=== PATIENT | female | born 1985 | race Caucasian/White ===

== ENCOUNTER 2018-07-03 18:08 | Emergency (ER) | payer SELFPAY ==
[2018-07-03] MEDS ORDERED: NA CHLORIDE 0.9% 1,000 ML ONE (19:02)
[2018-07-03] MEDS ORDERED: DIPHENHYDRAMINE 50 MG/ML VIAL ONE (19:02)
[2018-07-03] MEDS ORDERED: METOCLOPRAMIDE 10 MG/2mL INJ ONE (19:02)
[2018-07-03 20:31] LABS: Absolute Lymphocytes (CBC) 0.7 K/uL (0.7-4.9); Absolute Monocytes 0.2 K/uL (0.1-1.3); Absolute Neutrophil 6.4 K/uL (1.8-8.0); Basophils % 0.2 % (0-1.3); Hematocrit 35.6 % (36.0-45.0); Lymphocytes % 9.9 % (15.3-44.8); MCH 30.8 pg (27.0-35.0); MCV 88.5 fL (80-100); MPV 10.5 fL (7.6-11.3); Monocytes % 2.7 % (3.3-12.3); RBC Red Blood Cell Count 4.02 M/uL (3.86-4.86)
[2018-07-03 20:36] LABS: ALT/SGPT 26 U/L (12-78); AST/SGOT 14 U/L (15-37); Albumin 3.8 g/dL (3.4-5.0); Alkaline Phosphatase 37 U/L (45-117); BUN Blood Urea Nitrogen 13 mg/dL (7-18); Bicarbonate 24 mmol/L (21-32); Bilirubin Direct < 0.1 mg/dL (0-0.2); Bilirubin Total 0.4 mg/dL (0.2-1.0); Glucose Level 96 mg/dL (74-106); Lipase 137 U/L (73-393); Potassium 3.7 mmol/L (3.5-5.1); Protein, Total 6.8 g/dL (6.4-8.2); Sodium Level 140 mmol/L (136-145)
[2018-07-03 21:10] LABS: Blood Morphology Comment NOT SEEN (NOT SEEN); Platelet Estimate ADEQ
--- NOTE | 2018-07-03 22:00 | ER ---
Nurse's Notes [facility] Name: Angie Hillman Age: 33 yrs Sex: Female : 1985 Arrival Date: 07/03/2018 Time: 18:17 Bed 25 Private MD: Diagnosis: Vomiting;Unspecified abdominal pain Presentation: 07/03 18:18 Presenting complaint: EMS states: N/V and upper abdominal pain x 3 days. Not tolerating hb fluids. BP 90/58, HR 118, improved to 118/78, HR 89 after administration of 1L NS. 18:18 Method Of Arrival: EMS: [facility] hb 18:18 Transition of care: patient was not received from another setting of care. hb 18:18 Onset of symptoms was July 03, 2018. Risk Assessment: Do you want to hurt yourself hb or someone else? Patient reports no desire to harm self or others. Initial Sepsis Screen:. Care prior to arrival: Medication(s) given: Normal saline infusion, 1000 mL, IV initiated. 20 GA, in the right antecubital area, Glucose check: 126. 18:18 Acuity: SOREN 3 hb 18:30 Initial Sepsis Screen: Does the patient meet any 2 criteria? No. Patient's initial aj1 sepsis screen is negative. Does the patient have a suspected source of infection? Yes: Acute abdominal pain. 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 - Social history:: Smoking status: Patient/guardian denies using tobacco. - Ebola Screening: : Patient denies travel to an Ebola-affected area in the 21 days before illness onset. Screenin:21 Abuse screen: Denies threats or abuse. Denies injuries from another. Nutritional hb screening: No deficits noted. Tuberculosis screening: No symptoms or risk factors identified. Fall Risk None identified. Assessment: 18:30 General: Appears in no apparent distress. uncomfortable, Behavior is calm, cooperative, aj1 appropriate for age. Pain: Complains of pain in epigastric area Pain does not radiate. Pain currently is 6 out of 10 on a pain scale. Neuro: Level of Consciousness is awake, alert, obeys commands, Oriented to person, place, time, situation. Cardiovascular: Patient's skin is warm and dry. Respiratory: Airway is patent Respiratory effort is even, unlabored, Respiratory pattern is regular, symmetrical. GI: Abdomen is flat, non-distended, Bowel sounds present X 4 quads. Abdomen is tender to palpation in left upper quadrant Reports diarrhea, nausea, vomiting. : No signs and/or symptoms were reported regarding the genitourinary system. EENT: No signs and/or symptoms were reported regarding the EENT system. Derm: No signs and/or symptoms reported regarding the dermatologic system. Skin is pink, warm \T\ dry. normal. Musculoskeletal: No signs and/or symptoms reported regarding the musculoskeletal system. Circulation, motion, and sensation intact. 19:30 Reassessment: Patient appears in no apparent distress at this time. No changes from aj1 previously documented assessment. Patient and/or family updated on plan of care and expected duration. Pain level reassessed. Patient is alert, oriented x 3, equal unlabored respirations, skin warm/dry/pink. 20:30 Reassessment: Patient and/or family updated on plan of care and expected duration. Pain aj1 level reassessed. General: Appears in no apparent distress. comfortable, Behavior is calm, cooperative, appropriate for age. Neuro: Level of Consciousness is awake, alert, obeys commands, Oriented to person, place, time, situation. Cardiovascular: Patient's skin is warm and dry. Respiratory: Airway is patent Respiratory effort is even, unlabored, Respiratory pattern is regular, symmetrical. GI: Abdomen is flat, non-distended. Derm: No signs and/or symptoms reported regarding the dermatologic system. Skin is pink, warm \T\ dry. normal. Musculoskeletal: No signs and/or symptoms reported regarding the musculoskeletal system. Circulation, motion, and sensation intact. 21:30 Reassessment: Patient appears in no apparent distress at this time. No changes from aj1 previously documented assessment. Patient and/or family updated on plan of care and expected duration. Pain level reassessed. Patient is alert, oriented x 3, equal unlabored respirations, skin warm/dry/pink. 22:28 Reassessment: Patient appears in no apparent distress at this time. No changes from aj1 previously documented assessment. Patient and/or family updated on plan of care and expected duration. Pain level reassessed. Patient is alert, oriented x 3, equal unlabored respirations, skin warm/dry/pink. Vital Signs: 18:20 BP 121 / 59; Pulse 74; Resp 16; Temp 99; Pulse Ox 100% on R/A; Pain 10/10; hb 19:15 BP 113 / 58; Pulse 65; Resp 16; Pulse Ox 100% ; aj1 20:15 BP 103 / 51; Pulse 60; Resp 16; Pulse Ox 100% ; aj1 21:15 BP 112 / 55; Pulse 58; Resp 16; Pulse Ox 100% ; aj1 22:06 BP 105 / 59; Pulse 61; Resp 16; Pulse Ox 100% on R/A; aj1 ED Course: 18:17 Patient arrived in ED. as 18:19 Fito Arteaga PA is PHCP. [facility] 18:19 Julio Varma MD is Attending Physician. [facility] 18:21 Arm band placed on right wrist. hb 18:22 Triage completed. hb 18:30 Patient has correct armband on for positive identification. Bed in low position. Call aj1 light in reach. Side rails up X 1. 18:30 No provider procedures requiring assistance completed. Maintain EMS IV. Dressing aj1 intact. Good blood return noted. Site clean \T\ dry. Gauge \T\ site: 18g left AC. 18:48 Latrice Rainey, RN is Primary Nurse. aj1 21:59 Bucky Claire MD is Referral Physician. [facility] 22:30 IV discontinued, intact, bleeding controlled, No redness/swelling at site. Pressure aj1 dressing applied. Administered Medications: 19:09 Drug: diphenhydrAMINE 25 mg Route: IVP; Site: left antecubital; aj1 20:10 Follow up: Response: No adverse reaction aj1 19:10 Drug: NS 0.9% 1000 ml Route: IV; Rate: 1000 ml; Site: left antecubital; aj1 20:10 Follow up: IV Status: Completed infusion; IV Intake: 1000ml aj1 19:10 Drug: Reglan 10 mg Route: IVP; Site: left antecubital; aj1 20:10 Follow up: Response: No adverse reaction 1 21:58 Drug: Ketorolac 30 mg Route: IVP; Site: left antecubital; aj1 22:31 Follow up: Response: No adverse reaction aj1 Intake: 20:10 IV: 1000ml; Total: 1000ml. aj1 Outcome: 21:59 Discharge ordered by . nanci 22:30 Discharged to home ambulatory. aj1 22:30 Condition: good 22:30 Discharge instructions given to patient, Instructed on discharge instructions, follow up and referral plans. medication usage, Demonstrated understanding of instructions, follow-up care, medications, Prescriptions given X 2. 22:32 Patient left the ED. aj1 Signatures: Latrice Rainey, RN RN aj1 Fito Arteaga PA PA jmm Martinez, Amelia as Latanya Escamilla, RN RN hb
--- NOTE | 2018-07-03 22:01 | EDPHYS ---
Physician Documentation [facility] Name: Angie Hillman Age: 33 yrs Sex: Female : 1985 Arrival Date: 07/03/2018 Time: 18:17 Bed 25 Private MD: ED Physician Julio Varma HPI: 07/03 18:33 This 33 yrs old Female presents to ER via EMS with complaints of vomiting, abdominal jmm pain. 18:33 The patient presents to the emergency department with vomiting, diarrhea, abdominal jmm pain. Onset: The symptoms/episode began/occurred gradually, 3 day(s) ago. Possible causes: unknown. The symptoms are aggravated by nothing. The symptoms are alleviated by nothing. Associated signs and symptoms: Pertinent positives: abdominal pain. This is a 33 year old female with no chronic medical conditions that presents to the ED with epigastric abdominal pain vomiting, diarrhea beginning 3 days ago worsen today. Patient denies recent travel, denies sick contacts, denies recent abx use. . 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 - Social history:: Smoking status: Patient/guardian denies using tobacco. - Ebola Screening: : Patient denies travel to an Ebola-affected area in the 21 days before illness onset. ROS: 18:33 Constitutional: Negative for fever, chills, and weight loss, Eyes: Negative for injury, jmm pain, redness, and discharge, Cardiovascular: Negative for chest pain, palpitations, and edema, Respiratory: Negative for shortness of breath, cough, wheezing, and pleuritic chest pain. 18:33 Back: Negative for injury and pain, MS/Extremity: Negative for injury and deformity, Skin: Negative for injury, rash, and discoloration, Neuro: Negative for headache, weakness, numbness, tingling, and seizure. 18:33 Abdomen/GI: Positive for abdominal pain, nausea and vomiting, diarrhea. 18:33 All other systems are negative. Exam: 18:33 Constitutional: This is a well developed, well nourished patient who is awake, alert, jmm and in no acute distress. Head/Face: atraumatic. Eyes: EOMI, no conjunctival erythema appreciated ENT: Moist Mucus Membranes Neck: Trachea midline, Supple Chest/axilla: Normal chest wall appearance and motion. Cardiovascular: Regular rate and rhythm. No edema appreciated Respiratory: Normal respirations, no respiratory distress appreciated 18:33 Abdomen/GI: Inspection: abdomen appears normal, Bowel sounds: normal, Palpation: soft, mild abdominal tenderness, in the umbilical area and left upper quadrant. 18:33 Back: ROM is normal. 18:33 Musculoskeletal/extremity: ROM: intact in all extremities. 18:33 Skin: Appearance: Color: normal in color. 18:33 Neuro: Orientation: is normal, Mentation: is normal, Memory: is normal. 18:33 Psych: Behavior/mood is pleasant, cooperative. Vital Signs: 18:20 BP 121 / 59; Pulse 74; Resp 16; Temp 99; Pulse Ox 100% on R/A; Pain 10/10; hb 19:15 BP 113 / 58; Pulse 65; Resp 16; Pulse Ox 100% ; aj1 20:15 BP 103 / 51; Pulse 60; Resp 16; Pulse Ox 100% ; aj1 21:15 BP 112 / 55; Pulse 58; Resp 16; Pulse Ox 100% ; aj1 22:06 BP 105 / 59; Pulse 61; Resp 16; Pulse Ox 100% on R/A; aj1 MDM: 18:20 Patient medically screened. [facility] 21:44 Data reviewed: vital signs, nurses notes. Counseling: I had a detailed discussion with mitchell the patient and/or guardian regarding: the historical points, exam findings, and any diagnostic results supporting the discharge/admit diagnosis, the need for outpatient follow up, to return to the emergency department if symptoms worsen or persist or if there are any questions or concerns that arise at home. 21:58 ED course: Patient is able to tolerate PO in the ED. Risks and benefits of CT imaging nanci was discussed with the patient whom declined the study. Repeat exam of the patient's abdomen was soft with no guarding or rebound. Patient given follow up with GI. Strict return precautions given. Patient understood and agrees with the plan of care. . 07/03 18:22 Order name: Basic Metabolic Panel; Complete Time: 20:50 [facility] 07/03 18:22 Order name: CBC with Diff; Complete Time: 21:18 [facility] 07/03 18:22 Order name: Creatinine for Radiology; Complete Time: 20:50 [facility] 07/03 18:22 Order name: Hepatic Function; Complete Time: 20:50 [facility] 07/03 18:22 Order name: Lipase; Complete Time: 20:50 [facility] 07/03 21:10 Order name: Manual Differential; Complete Time: 21:18 [facility] 07/03 18:22 Order name: IV Saline Lock; Complete Time: 20:06 [facility] 07/03 18:22 Order name: Labs collected and sent; Complete Time: 20:06 [facility] 07/03 18:22 Order name: Urine Dipstick-Ancillary (obtain specimen); Complete Time: 21:18 [facility] 07/03 21:21 Order name: Urine Dipstick--Ancillary (enter results) [facility] 07/03 18:22 Order name: Urine Test (obtain specimen); Complete Time: 21:18 [facility] Administered Medications: 19:09 Drug: diphenhydrAMINE 25 mg Route: IVP; Site: left antecubital; aj1 20:10 Follow up: Response: No adverse reaction aj1 19:10 Drug: NS 0.9% 1000 ml Route: IV; Rate: 1000 ml; Site: left antecubital; aj1 20:10 Follow up: IV Status: Completed infusion; IV Intake: 1000ml aj1 19:10 Drug: Reglan 10 mg Route: IVP; Site: left antecubital; aj1 20:10 Follow up: Response: No adverse reaction aj1 21:58 Drug: Ketorolac 30 mg Route: IVP; Site: left antecubital; aj1 22:31 Follow up: Response: No adverse reaction aj1 Disposition: 07/04 07:41 Co-signature as Attending Physician, Julio Varma MD I agree with the assessment and carter plan of care. Disposition: 07/03/18 21:59 Discharged to Home. Impression: Vomiting, Unspecified abdominal pain. - Condition is Stable. - Discharge Instructions: Abdominal Pain, Adult. - Prescriptions for Zofran ODT 4 mg Oral tablet,disintegrating - place 1 tablet by TRANSLINGUAL route every 4-6 hours; 20 tablet. Bentyl 20 mg Oral Tablet - take 1 tablet by ORAL route every 6 hours As needed; 20 tablet. - Medication Reconciliation Form, Thank You Letter, Antibiotic Education, Prescription Opioid Use form. - Follow up: Bucky Claire MD; When: 2 - 3 days; Reason: Recheck today's complaints, Continuance of care, Re-evaluation by your physician. Signatures: Dispatcher [employer] Latrice Morales RN RN aj1 Julio Varma MD MD cha Mickail, Joel, PA PA Latanya Wilks RN RN Corrections: (The following items were deleted from the chart) 07/03 22:32 21:59 07/03/2018 21:59 Discharged to Home. Impression: Vomiting; Unspecified abdominal aj1 pain. Condition is Stable. Forms are Medication Reconciliation Form, Thank You Letter, Antibiotic Education, Prescription Opioid Use. Follow up: Bucky Claire; When: 2 - 3 days; Reason: Recheck today's complaints, Continuance of care, Re-evaluation by your physician. nanci
[2018-07-03] MEDS ORDERED: KETOROLAC 30 MG/ML INJ ONE (22:03)
[2018-07-03 22:55] LABS: Urine Blood NEGATIVE (NEG); Urine Glucose NEGATIVE (NEG); Urine Protein TRACE (NEG); Urine pH 8.5 (5.0-7.0)
== END 2018-07-03 22:32 | disposition home or self-care (01) ==
LOC: ER 18:08
DX: R11.10 Vomiting, unspecified (principal); R10.9 Unspecified abdominal pain
CPT/HCPCS: 36415; 80048; 80076; 81003; 83690; 85025; 96361; 96374; 96375; 99283; J2765; J7030

== ENCOUNTER 2018-08-03 14:00 | Emergency (ER) | payer SELFPAY ==
[2018-08-03 14:39] LABS: Absolute Monocytes 0.5 K/uL (0.1-1.3); Absolute Neutrophil 7.3 K/uL (1.8-8.0); Basophils % 0.4 % (0-1.3); Eosinophils % 0.2 % (0-4.4); Hematocrit 44.2 % (36.0-45.0); Lymphocytes % 20.1 % (15.3-44.8); MPV 9.2 fL (7.6-11.3); RBC Red Blood Cell Count 4.98 M/uL (3.86-4.86)
[2018-08-03] MEDS ORDERED: KETOROLAC 30 MG/ML INJ ONE (14:47)
[2018-08-03] MEDS ORDERED: NA CHLORIDE 0.9% 1,000 ML ONE ×2 (14:47→16:17)
[2018-08-03] MEDS ORDERED: ONDANSETRON 4 MG/2 ML VIAL ONE ×2 (14:47→15:34)
[2018-08-03 15:03] LABS: Albumin 4.3 g/dL (3.4-5.0); Bilirubin Direct 0.1 mg/dL (0-0.2); Bilirubin Total 0.7 mg/dL (0.2-1.0); Potassium 3.3 mmol/L (3.5-5.1); Protein, Total 8.2 g/dL (6.4-8.2)
--- NOTE | 2018-08-03 15:41 | RAD REPORT ---
EXAM DESCRIPTION: US - Abdomen Exam Limited - 08/03/2018 3:34 pm CLINICAL HISTORY: ABD PAIN COMPARISON: No comparisons FINDINGS: The gallbladder demonstrates no gallstones. No pericholecystic fluid or gallbladder wall t hickening. The common bile duct is normal measuring 2 mm. The liver demonstrates no findings of intrahepatic biliary dilatation. IMPRESSION: Unremarkable examination.
--- NOTE | 2018-08-03 15:54 | ER ---
Nurse's Notes [facility] Name: Angie Hillman Age: 33 yrs Sex: Female : 1985 Arrival Date: 08/03/2018 Time: 14:04 Bed 13 Private MD: None, None Diagnosis: Upper abdominal pain, unspecified;Nausea with vomiting, unspecified Presentation: 08/03 14:14 Presenting complaint: Patient states: Reports N/V and upper abdominal pain that started aj last night. Transition of care: patient was not received from another setting of care. Onset of symptoms was August 02, 2018. Risk Assessment: Do you want to hurt yourself or someone else? Patient reports no desire to harm self or others. Initial Sepsis Screen: Does the patient meet any 2 criteria? No. Patient's initial sepsis screen is negative. Does the patient have a suspected source of infection? No. Patient's initial sepsis screen is negative. Care prior to arrival: None. 14:14 Method Of Arrival: Ambulatory aj 14:14 Acuity: SOREN 3 aj Triage Assessment: 14:15 General: Appears in no apparent distress. uncomfortable, Behavior is calm, cooperative, aj appropriate for age. Pain: Complains of pain in right upper quadrant and left upper quadrant. Neuro: Level of Consciousness is awake, alert, obeys commands, Oriented to person, place, time, situation, Appropriate for age. Respiratory: Airway is patent Respiratory effort is even, unlabored, Respiratory pattern is regular, symmetrical. GI: Reports upper abdominal pain, diarrhea, nausea, vomiting. Derm: Skin is intact, is healthy with good turgor, Skin is pink, warm \T\ dry. normal. 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 - Social history:: Smoking status: Patient/guardian denies using tobacco. - Ebola Screening: : Patient negative for fever greater than or equal to 101.5 degrees Fahrenheit, and additional compatible Ebola Virus Disease symptoms Patient denies exposure to infectious person Patient denies travel to an Ebola-affected area in the 21 days before illness onset No symptoms or risks identified at this time. Screenin:30 Abuse screen: Denies threats or abuse. Denies injuries from another. Nutritional hb screening: No deficits noted. Tuberculosis screening: No symptoms or risk factors identified. Fall Risk None identified. Assessment: 14:30 General: Appears in no apparent distress. uncomfortable, Behavior is cooperative, hb anxious, crying. Pain: Pain currently is 8 out of 10 on a pain scale. Neuro: Level of Consciousness is awake, alert, obeys commands, Oriented to person, place, time, situation. Cardiovascular: Heart tones S1 S2 present Capillary refill < 3 seconds Patient's skin is warm and dry. Respiratory: Airway is patent Respiratory effort is even, unlabored, Respiratory pattern is regular, symmetrical, Breath sounds are clear bilaterally. GI: Abdomen is non-distended, Bowel sounds present X 4 quads. Abd is soft and non tender X 4 quads. Reports upper abdominal pain, nausea, vomiting. : No signs and/or symptoms were reported regarding the genitourinary system. EENT: No signs and/or symptoms were reported regarding the EENT system. Derm: Skin is intact, is healthy with good turgor, Skin is pink, warm \T\ dry. Musculoskeletal: No signs and/or symptoms reported regarding the musculoskeletal system. 15:02 Reassessment: Patient appears in no apparent distress at this time. No changes from previously documented assessment. Patient and/or family updated on plan of care and expected duration. Pain level reassessed. Patient is alert, oriented x 3, equal unlabored respirations, skin warm/dry/pink. 16:00 Reassessment: Patient appears in no apparent distress at this time. Patient and/or hb family updated on plan of care and expected duration. Pain level reassessed. Patient is alert, oriented x 3, equal unlabored respirations, skin warm/dry/pink. Discharge ordered, NS infusing at this time. 16:27 Reassessment: PT vomit x 1, SERVICE OPERATIONS MANAGER Sonya notified, Phenergan administered as ordered. VSS.hb 17:20 Reassessment: Patient appears in no apparent distress at this time. Patient and/or hb family updated on plan of care and expected duration. Pain level reassessed. Patient is alert, oriented x 3, equal unlabored respirations, skin warm/dry/pink. Patient denies pain at this time. Patient states feeling better. Patient states symptoms have improved. Vital Signs: 14:15 BP 121 / 72; Pulse 97; Resp 20; Temp 97.8; Pulse Ox 100% on R/A; Weight 54.43 kg; aj Height 5 ft. 8 in. (172.72 cm); 15:01 BP 111 / 72; Pulse 87; Resp 15; Pulse Ox 100% on R/A; Pain 7/10; hb 16:00 BP 116 / 64; Pulse 66; Resp 15; Pulse Ox 100% on R/A; hb 17:00 BP 116 / 64; Pulse 65; Resp 15; Pulse Ox 100% on R/A; Pain 0/10; hb 14:15 Body Mass Index 18.25 (54.43 kg, 172.72 cm) aj ED Course: 14:04 Patient arrived in ED. sb2 14:04 None, None is Private Physician. sb2 14:06 Sonya Hull FNP-C is [facility]. kb 14:06 Julio Varma MD is Attending Physician. kb 14:15 Triage completed. aj 14:15 Arm band placed on left wrist. Patient placed. aj 14:29 Initial lab(s) drawn, by me, sent to lab. Inserted saline lock: 22 gauge in right dh3 antecubital area, using aseptic technique. Blood collected. 14:30 Patient has correct armband on for positive identification. Placed in gown. Bed in low hb position. Call light in reach. Side rails up X 1. 14:49 Latanya Escamilla, RN is Primary Nurse. hb 15:30 Urine collected: clean catch specimen, earnestine colored. dh3 15:33 Ultrasound completed. Patient tolerated well. Patient moved back from ultrasound. aa4 15:34 US Abdomen Limited In Process Unspecified. EDMS 17:28 No provider procedures requiring assistance completed. IV discontinued, intact, hb bleeding controlled, No redness/swelling at site. Pressure dressing applied. Administered Medications: 14:44 Drug: NS 0.9% 1000 ml Route: IV; Rate: 1000 ml; Site: left antecubital; hb 15:45 Follow up: Response: No adverse reaction; IV Status: Completed infusion hb 14:44 Drug: TORadol 30 mg Route: IVP; Site: left antecubital; hb 15:15 Follow up: Response: No adverse reaction hb 14:44 Drug: Zofran 4 mg Route: IVP; Site: right antecubital; hb 15:15 Follow up: Response: No adverse reaction hb 15:28 Drug: Zofran 4 mg Route: IVP; Site: right antecubital; ss 16:00 Follow up: Response: No adverse reaction hb 16:13 Drug: NS 0.9% 1000 ml Route: IV; Rate: 1000 ml; Site: right antecubital; hb 17:27 Follow up: Response: No adverse reaction; IV Status: Completed infusion hb 16:13 Drug: Pepcid 20 mg Route: IVP; Site: right antecubital; hb 16:37 Follow up: Response: No adverse reaction hb 16:13 Drug: GI Cocktail without - (Maalox Suspension 30 ml, Lidocaine Liquid 2 % 15 hb ml) Route: PO; 16:37 Follow up: Response: No adverse reaction hb 16:26 Drug: Phenergan 12.5 mg Route: IVP; Site: right antecubital; hb 17:15 Follow up: Response: No adverse reaction; Nausea is decreased hb Outcome: 15:54 Discharge ordered by MD. kb 17:28 Discharged to home ambulatory, with family. hb 17:28 Condition: stable 17:28 Discharge instructions given to patient, Instructed on discharge instructions, follow up and referral plans. medication usage, Demonstrated understanding of instructions, follow-up care, medications, Prescriptions given X 2. 17:29 Patient left the ED. hb Signatures: Dispatcher [employer] EDSonya Thorpe, KENDRICK-C FLEET MECHANIC-Dee Aguayo RN Dee Samson aa4 Jodee Baum RN RN ss Baxter, Heather, RN RN hb Herrera, Deanna 3 Marbella Valverde2
--- NOTE | 2018-08-03 15:54 | EDPHYS ---
Physician Documentation [facility] Name: Angie Hillman Age: 33 yrs Sex: Female : 1985 Arrival Date: 08/03/2018 Time: 14:04 Bed 13 Private MD: None, None ED Physician Julio Varma HPI: 08/03 15:17 This 33 yrs old Female presents to ER via Ambulatory with complaints of kb Abdominal Pain, Vomiting. 15:17 The patient presents with abdominal pain in the epigastric area. Onset: The kb symptoms/episode began/occurred last night. The symptoms do not radiate. Associated signs and symptoms: Pertinent positives: nausea, vomiting, and diarrhea, Pertinent negatives: anorexia, blood in stools, chest pain, constipation, dysuria, fever, headache, hematuria, palpitations, shortness of breath, vaginal discharge, vomiting blood. The symptoms are described as constant. Modifying factors: The symptoms are alleviated by nothing, the symptoms are aggravated by nothing. Severity of pain: At its worst the pain was moderate in the emergency department the pain is unchanged. The patient has not experienced similar symptoms in the past. The patient has not recently seen a physician. 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 - Social history:: Smoking status: Patient/guardian denies using tobacco. - Ebola Screening: : Patient negative for fever greater than or equal to 101.5 degrees Fahrenheit, and additional compatible Ebola Virus Disease symptoms Patient denies exposure to infectious person Patient denies travel to an Ebola-affected area in the 21 days before illness onset No symptoms or risks identified at this time. ROS: 15:14 Constitutional: Negative for fever, chills, and weight loss, ENT: Negative for injury, kb pain, and discharge, Neck: Negative for injury, pain, and swelling, Cardiovascular: Negative for chest pain, palpitations, and edema, Respiratory: Negative for shortness of breath, cough, wheezing, and pleuritic chest pain, Back: Negative for injury and pain, : Negative for injury, bleeding, discharge, and swelling, MS/Extremity: Negative for injury and deformity, Skin: Negative for injury, rash, and discoloration, Neuro: Negative for headache, weakness, numbness, tingling, and seizure. 15:14 Abdomen/GI: Positive for abdominal pain, nausea and vomiting, Negative for diarrhea, constipation, abdominal cramps, abdominal distension, anorexia. Exam: 15:16 Constitutional: This is a well developed, well nourished patient who is awake, alert, kb and in no acute distress. Head/Face: Normocephalic, atraumatic. ENT: Nares patent. No nasal discharge, no septal abnormalities noted. Tympanic membranes are normal and external auditory canals are clear. Oropharynx with no redness, swelling, or masses, exudates, or evidence of obstruction, uvula midline. Mucous membranes moist. Neck: Trachea midline, no thyromegaly or masses palpated, and no cervical lymphadenopathy. Supple, full range of motion without nuchal rigidity, or vertebral point tenderness. No Meningismus. Chest/axilla: Normal chest wall appearance and motion. Nontender with no deformity. No lesions are appreciated. Cardiovascular: Regular rate and rhythm with a normal S1 and S2. No gallops, murmurs, or rubs. Normal PMI, no JVD. No pulse deficits. Respiratory: Lungs have equal breath sounds bilaterally, clear to auscultation and percussion. No rales, rhonchi or wheezes noted. No increased work of breathing, no retractions or nasal flaring. Abdomen/GI: Soft, non-tender, with normal bowel sounds. No distension or tympany. No guarding or rebound. No evidence of tenderness throughout. Skin: Warm, dry with normal turgor. Normal color with no rashes, no lesions, and no evidence of cellulitis. MS/ Extremity: Pulses equal, no cyanosis. Neurovascular intact. Full, normal range of motion. Neuro: Awake and alert, GCS 15, oriented to person, place, time, and situation. Cranial nerves II-XII grossly intact. Motor strength 5/5 in all extremities. Sensory grossly intact. Cerebellar exam normal. Normal gait. Vital Signs: 14:15 BP 121 / 72; Pulse 97; Resp 20; Temp 97.8; Pulse Ox 100% on R/A; Weight 54.43 kg; aj Height 5 ft. 8 in. (172.72 cm); 15:01 BP 111 / 72; Pulse 87; Resp 15; Pulse Ox 100% on R/A; Pain 7/10; hb 16:00 BP 116 / 64; Pulse 66; Resp 15; Pulse Ox 100% on R/A; hb 17:00 BP 116 / 64; Pulse 65; Resp 15; Pulse Ox 100% on R/A; Pain 0/10; hb 14:15 Body Mass Index 18.25 (54.43 kg, 172.72 cm) aj MDM: 14:18 Patient medically screened. kb 15:14 Data reviewed: vital signs, nurses notes. Data interpreted: Pulse oximetry: on room air kb is 100 %. Interpretation: normal. 15:53 Counseling: I had a detailed discussion with the patient and/or guardian regarding: the kb historical points, exam findings, and any diagnostic results supporting the discharge/admit diagnosis, lab results, radiology results, the need for outpatient follow up, a family practitioner, a child guidance counselor, to return to the emergency department if symptoms worsen or persist or if there are any questions or concerns that arise at home. 08/03 14:19 Order name: Basic Metabolic Panel; Complete Time: 15:04 kb 08/03 14:19 Order name: CBC with Diff; Complete Time: 14:43 kb 08/03 14:19 Order name: Hepatic Function; Complete Time: 15:04 kb 08/03 14:19 Order name: Lipase; Complete Time: 15:04 kb 08/03 15:43 Order name: Urine Dipstick--Ancillary (enter results); Complete Time: 16:22 ag 08/03 15:43 Order name: Urine --Ancillary (enter results); Complete Time: 16:22 ag 08/03 15:05 Order name: US Abdomen Limited; Complete Time: 15:44 kb 08/03 14:19 Order name: IV Saline Lock; Complete Time: 14:33 kb 08/03 14:19 Order name: Labs collected and sent; Complete Time: 14:33 kb 08/03 15:34 Order name: PO challenge; Complete Time: 16:13 kb Administered Medications: 14:44 Drug: NS 0.9% 1000 ml Route: IV; Rate: 1000 ml; Site: left antecubital; hb 15:45 Follow up: Response: No adverse reaction; IV Status: Completed infusion hb 14:44 Drug: TORadol 30 mg Route: IVP; Site: left antecubital; hb 15:15 Follow up: Response: No adverse reaction hb 14:44 Drug: Zofran 4 mg Route: IVP; Site: right antecubital; hb 15:15 Follow up: Response: No adverse reaction hb 15:28 Drug: Zofran 4 mg Route: IVP; Site: right antecubital; ss 16:00 Follow up: Response: No adverse reaction hb 16:13 Drug: NS 0.9% 1000 ml Route: IV; Rate: 1000 ml; Site: right antecubital; hb 17:27 Follow up: Response: No adverse reaction; IV Status: Completed infusion hb 16:13 Drug: Pepcid 20 mg Route: IVP; Site: right antecubital; hb 16:37 Follow up: Response: No adverse reaction hb 16:13 Drug: GI Cocktail without - (Maalox Suspension 30 ml, Lidocaine Liquid 2 % 15 hb ml) Route: PO; 16:37 Follow up: Response: No adverse reaction hb 16:26 Drug: Phenergan 12.5 mg Route: IVP; Site: right antecubital; hb 17:15 Follow up: Response: No adverse reaction; Nausea is decreased hb Disposition: 08/04 06:55 Co-signature as Attending Physician, Julio Varma MD I agree with the assessment and carter plan of care. Disposition: 08/03/18 15:54 Discharged to Home. Impression: Upper abdominal pain, unspecified, Nausea with vomiting, unspecified. - Condition is Stable. - Discharge Instructions: Nausea and Vomiting, Adult, [id number], Abdominal Pain, Adult, [id number]. - Prescriptions for Bentyl 20 mg Oral Tablet - take 1 tablet by ORAL route every 6 hours As needed; 20 tablet. Zofran 4 mg Oral Tablet - take 1 tablet by ORAL route every 6 hours As needed; 20 tablet. - Medication Reconciliation Form, Thank You Letter, Antibiotic Education, Prescription Opioid Use form. - Follow up: Emergency Department; When: As needed; Reason: Worsening of condition. Follow up: Private Physician; When: 2 - 3 days; Reason: Recheck today's complaints, Continuance of care, Re-evaluation by your physician. Signatures: Dispatcher [employer] EDNC Sonya Hull, HOUSE DECORATOR-C HOUSE DECORATOR-Ckb Dee Smallwood, RN RN Julio Cordon MD MD cha Smirch, Shelby, RN RN Latanya Escamilla, JUANITO RN hb Corrections: (The following items were deleted from the chart) 08/03 17:29 15:54 08/03/2018 15:54 Discharged to Home. Impression: Upper abdominal pain, hb unspecified; Nausea with vomiting, unspecified. Condition is Stable. Forms are Medication Reconciliation Form, Thank You Letter, Antibiotic Education, Prescription Opioid Use. Follow up: Emergency Department; When: As needed; Reason: Worsening of condition. Follow up: Private Physician; When: 2 - 3 days; Reason: Recheck today's complaints, Continuance of care, Re-evaluation by your physician. kb
[2018-08-03] MEDS ORDERED: MAGNE/ALUM HYDROXD 30 ML UCUP ONE (16:17)
[2018-08-03] MEDS ORDERED: LIDOCAINE VISCOUS 2% SOLN 15 ML UDC ONE (16:17)
[2018-08-03] MEDS ORDERED: FAMOTIDINE 20 MG/2 ML VIAL IV ONE (16:18)
[2018-08-03 16:19] LABS: Urine Blood TRACE (NEG); Urine Glucose NEGATIVE (NEG); Urine Protein 1+ (NEG); Urine Specific Gravity 1.025 (1.005-1.030); Urine pH 5.5 (5.0-7.0)
[2018-08-03] MEDS ORDERED: PROMETHAZINE 25 MG/ML VIAL ONE (16:34)
== END 2018-08-03 17:29 | disposition home or self-care (01) ==
LOC: ER 14:00
DX: R10.10 Upper abdominal pain, unspecified (principal); R11.2 Nausea with vomiting, unspecified
CPT/HCPCS: 36415; 76705; 80048; 80076; 81003; 81025; 83690; 85025; 99284; J2405; J2550; J7030

== ENCOUNTER 2018-10-23 08:49 | Emergency (ER) | payer SELFPAY ==
--- OUTSIDE RECORDS SUMMARY | 2018-10-23 08:51 | XMS REPORT ---
:1985 [facility] Address [address] [place] [address] [address] [place] [address] Care Team Providers Name Role Phone Unavailable Unavailable Unavailable Payers Payer Name Policy Type Policy Number Effective Date Expiration Date Problems This patient has no known problems. Allergies, Adverse Reactions, Alerts Allergy Allergy Status Severity Reaction(s) Onset Inactive Treating Comments Name Type Date Date Clinician doxepin TATO Active SV 2017-06 00:00:0 0 Medications This patient has no known medications. Results Test Description Test Time Test Comments Text Results Atomic Results Result Comments UA RFLX MICROSCOPIC CULTURE 2018-09-28 19:09:00 Test Item Value Reference Range Comments UA COLOR (test code=COLU) YELLOW YELLOW UA APPEARANCE (test code=APPU) CLEAR CLEAR UA GLUCOSE DIPSTICK (test code=DGLUU) NEGATIVE mg/dL NEGATIVE UA BILIRUBIN DIPSTICK (test code=BILU) NEGATIVE NEGATIVE UA KETONE DIPSTICK (test code=KETU) 15 mg/dL NEGATIVE UA SPECIFIC GRAVITY (test code=SGU) 1.010 1.001-1.035 UA BLOOD DIPSTICK (test code=MONTANA) NEGATIVE NEGATIVE UA PH DIPSTICK (test code=JOSE) 7.0 5.5-7.0 UA PROTEIN DIPSTICK (test code=PROU) NEGATIVE mg/dL NEGATIVE UA UROBILINOGEN DIPSTICK (test code=URO) NORMAL mg/dL NORMAL UA NITRITE DIPSTICK (test code=LALO) NEGATIVE NEGATIVE UA LEUKOCYTE ESTERASE DIPSTICK (test code=LEUU) TRACE NEGATIVE UA COMMENT (test code=COMU) VOLUME 10-12 ML URINE SPECIMEN DESCRIPTION (test code=UASPEC) Clean Catch UA WBC (test code=WBCU) < 10 #/hpf <10 UA SQUAMOUS CELLS (test code=SQU) 0 - 20 #/lpf <100 UA CULTURE NEEDED? (test code=UACULT) Criteria not met UA [id number] 19:09:00 Test Item Value Reference Range Comments UA RBC (test code=RBCU) 0-2 #/hpf NONE SEEN UA BACTERIA (test code=BACU) RARE #/hpf NONE SEEN UA RFLX MICROSCOPIC [id number] 19:03:00 Test Item Value Reference Range Comments UA COLOR (test code=COLU) YELLOW YELLOW UA APPEARANCE (test code=APPU) CLEAR CLEAR UA GLUCOSE DIPSTICK (test code=DGLUU) NEGATIVE mg/dL NEGATIVE UA BILIRUBIN DIPSTICK (test code=BILU) NEGATIVE NEGATIVE UA KETONE DIPSTICK (test code=KETU) 15 mg/dL NEGATIVE UA SPECIFIC GRAVITY (test code=SGU) 1.010 1.001-1.035 UA BLOOD DIPSTICK (test code=MONTANA) NEGATIVE NEGATIVE UA PH DIPSTICK (test code=JOSE) 7.0 5.5-7.0 UA PROTEIN DIPSTICK (test code=PROU) NEGATIVE mg/dL NEGATIVE UA UROBILINOGEN DIPSTICK (test code=URO) NORMAL mg/dL NORMAL UA NITRITE DIPSTICK (test code=LALO) NEGATIVE NEGATIVE UA LEUKOCYTE ESTERASE DIPSTICK (test TRACE NEGATIVE code=LEUU) UA COMMENT (test code=COMU) VOLUME 10-12 ML URINE SPECIMEN DESCRIPTION (test Clean Catch code=UASPEC) UA WBC (test code=WBCU) #/hpf <10 UA SQUAMOUS CELLS (test code=SQU) #/lpf <100 UA CULTURE NEEDED? (test code=UACULT) UA [id number] 19:03:00 Test Item Value Reference Range Comments UA RBC (test code=RBCU) #/hpf NONE SEEN UA RFLX MICROSCOPIC [id number] 19:03:00 Test Item Value Reference Range Comments UA COLOR (test code=COLU) YELLOW YELLOW UA APPEARANCE (test code=APPU) CLEAR CLEAR UA GLUCOSE DIPSTICK (test code=DGLUU) NEGATIVE mg/dL NEGATIVE UA BILIRUBIN DIPSTICK (test code=BILU) NEGATIVE NEGATIVE UA KETONE DIPSTICK (test code=KETU) 15 mg/dL NEGATIVE UA SPECIFIC GRAVITY (test code=SGU) 1.010 1.001-1.035 UA BLOOD DIPSTICK (test code=MONTANA) NEGATIVE NEGATIVE UA PH DIPSTICK (test code=JOSE) 7.0 5.5-7.0 UA PROTEIN DIPSTICK (test code=PROU) NEGATIVE mg/dL NEGATIVE UA UROBILINOGEN DIPSTICK (test code=URO) NORMAL mg/dL NORMAL UA NITRITE DIPSTICK (test code=LALO) NEGATIVE NEGATIVE UA LEUKOCYTE ESTERASE DIPSTICK (test TRACE NEGATIVE code=LEUU) UA COMMENT (test code=COMU) VOLUME 10-12 ML URINE SPECIMEN DESCRIPTION (test Clean Catch code=UASPEC) UA WBC (test code=WBCU) #/hpf <10 UA SQUAMOUS CELLS (test code=SQU) #/lpf <100 UA CULTURE NEEDED? (test code=UACULT) UA [id number] 19:03:00 Test Item Value Reference Range Comments UA RBC (test code=RBCU) #/hpf NONE SEEN D-DIMER [id number] 18:56:00 Test Item Value Reference Range Comments D-DIMER QUANT (test < 100 D-DU 0-400 Alere Triage values presented code=DDIMER) in units of mass (ng/mL)of D-dimer, also known as D-dimer units (D-DU).* Cut-off: 400 ng/mL Results of the D-Dimer test should always be interpretedin conjunction with the patient's medical history, clinicalpresentation, and other findings. Clinical diagnosis shouldnot be based on the results of D-Dimer alone.Patients with a distal DVT may have a normal D-Dimer result. ADD ON- XR CHEST 1 [id number] 18:34:00 Patient Name: ADY AYON Unit No: [id number] EXAMS: CPT CODE: [id number] XR CHEST 1 V 27798 Reason : syncope History: 4 syncopal episodes analysis line. Chest, single portable view. FINDINGS: Lungs are normally expanded and clear. Heart is not enlarged. No osseous or soft tissue abnormalities seen. IMPRESSION: Normal portable chest radiograph. Electronically Signed by Taj Fritz MD on 09/28 at 1834 Reported and signed by: Taj Fritz MD CC: Michael Fabian III, DO; Tita Jessica; Zafar Barahona MD Technologist: Magdalena AHMADI Trscrpt Dt/ (183) [email or web address] Orig Print D/T: S: 09/28/2018 (1837) [facility] NAME: ADY AYON [id number] [facility] PHYS: [email or web address].[id number] - CarenMichael maradiaga II Amarilis [place], [id number] : 1985 AGE: 33 SEX: F LOC: D.NER PHONE #: [phone] EXAM DATE: 09/28/2018 STATUS: REG ER FAX #: RAD NO: DC Dt: PAGE 1 Signed Report- CT HEAD/BRAIN W/O [id number] 18:11:00 Patient Name: ADY AYON Unit No: [id number] EXAMS: CPT CODE: [id number] CT HEAD/BRAIN W/O CONT [id number] Reason: sncope, SHER History: Syncope and headache. UNENHANCED CT BRAIN SCAN: Scans of the brain were performed at routine axial sections without the use of IV contrast. FINDINGS: The ventricular system and subarachnoid spaces are normalfor age. No mass lesion, midline shift, or extracerebral fluid collection is present. No low or high attenuation intraparenchymal lesions are noted. The paranasal sinuses, mastoids, and middle ears are normally aerated. Cranium and scalp are normal. IMPRESSION : Normal unenhanced CT scan of the brain. Electronically Signed by Taj Fritz MD on 09/28 at 1811 Reported and signed by: Taj Fritz MD CC: Michael Fabian III, DO ; Tita Jessica; Zafar Barahona MD Technologist: Magdalena AHMADI Trscrpt Dt/ (181)tCYNTHIAELG Orig Print D/ T: S: 09/28/2018 (181) CTDI: DLP: [facility] NAME: ADY AYON [id number] PHYS: SCHHA.[id number] - Caren,[place] [address] : 12/1984 AGE: 33 SEX: F LOC: DayanMEHREEN PHONE #: [phone] EXAM DATE: STATUS: REG ER FAX #: RAD NO: DC Dt: PAGE 1 Signed ReportHCG SERUM [id number] 17:44:00 Test Item Value Reference Range Comments HCG SERUM QUAL (test NEGATIVE NEGATIVE False negatives may occur when code=HCGQL) levels of hCGare below 10 mIU/ml. When is still suspected, a new specimenshould be obtained after 48 hours and re-tested.If waiting 48 hours is not medically advisable,the test result should be confirmed using aquantitative hCG assay. TROPONIN I [id number] 17:37:00 Test Item Value Reference Range Comments TROPONIN I RAPID (test 0.00 NG/ML 0.00-0.08 Performed by certified code=TROPIRAP) computer peripheral equipment operator at [facility] - The use of serial sampling and testing protocol is a recommended practice.- An elevated troponin level alone is often not sufficient for diagnosis of myocardial infarction. BASIC METABOLIC [id number] 17:25:00 Test Item Value Reference Range Comments SODIUM (test code=NA) 137 MMOL/L 133-145 POTASSIUM (test code=K) 3.4 MMOL/L 3.6-5.2 CHLORIDE (test code=CL) 101 MMOL/L 100-108 CARBON DIOXIDE (test 27 MMOL/L 22-32 code=CO2) GLUCOSE (test code=GLU) 97 MG/DL 65-99 Results of this assay method may be falsely depressed orelevated if patient is taking sulfasalazine. BLOOD UREA NITROGEN (test 9 MG/DL 6-20 code=BUN) GLOMERULAR FILTRATION RATE 84 64-149 Reporting units: (test code=GFR) mL/min/1.73m\S\2 (Modified MDRD Formula) CREATININE (test code=CREAT) 0.80 MG/DL 0.60-1.00 CALCIUM (test code=CA) 9.0 MG/DL 8.7-10.5 NT PRO-BRAIN NATRIURETIC [id number] 17:25:00 Test Item Value Reference Range Comments NT PRO-BRAIN NATRIURETIC PEPTI 112 PG/ML 0-125 Results of this assay method (test code=PROBNP) may be falsely depressed orelevated if patient is taking high doses of Biotin. BASIC METABOLIC [id number] 17:16:00 Test Item Value Reference Range Comments SODIUM (test code=NA) 137 MMOL/L 133-145 POTASSIUM (test code=K) 3.4 MMOL/L 3.6-5.2 CHLORIDE (test code=CL) 101 MMOL/L 100-108 CARBON DIOXIDE (test 27 MMOL/L 22-32 code=CO2) GLUCOSE (test code=GLU) 97 MG/DL 65-99 Results of this assay method may be falsely depressed orelevated if patient is taking sulfasalazine. BLOOD UREA NITROGEN (test 9 MG/DL 6-20 code=BUN) GLOMERULAR FILTRATION RATE 84 64-149 Reporting units: (test code=GFR) mL/min/1.73m\S\2 (Modified MDRD Formula) CREATININE (test code=CREAT) 0.80 MG/DL 0.60-1.00 CALCIUM (test code=CA) 9.0 MG/DL 8.7-10.5 NT PRO-BRAIN NATRIURETIC [id number] 17:16:00 Test Item Value Reference Range Comments NT PRO-BRAIN NATRIURETIC PEPTI (test code=PROBNP) PG/ML 0-125 CBC W/AUTO [id number] 17:10:00 Test Item Value Reference Range Comments WHITE BLOOD CELL (test code=WBC) 7.62 x10 3/uL 4.80-10.80 RED BLOOD CELL (test code=RBC) 4.01 x10 6/uL 4.2-5.4 HEMOGLOBIN (test code=HGB) 12.1 G/DL 12.0-16.0 HEMATOCRIT (test code=HCT) 36.1 % 37-47 MEAN CELL VOLUME (test code=MCV) 90.0 FL 81-99 MEAN CELL HGB (test code=MCH) 30.2 PG 27-31 MEAN CELL HGB CONCENTRATION (test code=MCHC) 33.5 G/DL 33-37 RED CELL DISTRIBUTION WIDTH (test code=RDW) 12.4 % 11.5-14.5 PLATELET COUNT (test code=PLT) 191 x10 3/uL 150-450 MEAN PLATELET VOLUME (test code=MPV) 11.1 FL 7.4-10.4 NEUTROPHIL % (test code=NT%) 63.5 % 42-86 LYMPHOCYTE % (test code=LY%) 30.4 % 24-44 MONOCYTE % (test code=MO%) 5.6 % 0.0-4.0 EOSINOPHIL % (test code=EO%) 0.4 % 0.0-2.7 BASOPHIL % (test code=BA%) 0.1 % 0.0-0.5 NEUTROPHIL # (test code=NT#) 4.83 x10 3/uL 1.8-7.7 LYMPHOCYTE # (test code=LY#) 2.32 x10 3/uL 1.0-4.8 MONOCYTE # (test code=MO#) 0.43 x10 3/uL 0.0-0.8 EOSINOPHIL # (test code=EO#) 0.03 x10 3/uL 0.0-0.5 BASOPHIL # (test code=BA#) 0.01 x10 3/uL 0.0-0.2
[2018-10-23] MEDS ORDERED: ONDANSETRON 4 MG/2 ML VIAL ONE (09:39)
[2018-10-23] MEDS ORDERED: NA CHLORIDE 0.9% 1,000 ML ONE ×2 (09:39→11:19)
[2018-10-23 09:53] LABS: Absolute Lymphocytes (CBC) 1.5 K/uL (0.7-4.9); Absolute Monocytes 0.3 K/uL (0.1-1.3); Absolute Neutrophil 9.2 K/uL (1.8-8.0); Basophils % 0.3 % (0-1.3); Eosinophils % 0.4 % (0-4.4); Hematocrit 43.1 % (36.0-45.0); Lymphocytes % 13.8 % (15.3-44.8); MPV 9.2 fL (7.6-11.3); Monocytes % 2.8 % (3.3-12.3); RBC Red Blood Cell Count 4.79 M/uL (3.86-4.86)
[2018-10-23 10:12] LABS: ALT/SGPT 35 U/L (12-78); AST/SGOT 23 U/L (15-37); Albumin 4.1 g/dL (3.4-5.0); Alkaline Phosphatase 57 U/L (45-117); BUN Blood Urea Nitrogen 12 mg/dL (7-18); Bicarbonate 28 mmol/L (21-32); Bilirubin Direct < 0.1 mg/dL (0-0.2); Bilirubin Total 0.3 mg/dL (0.2-1.0); Glucose Level 102 mg/dL (74-106); Lipase 1004 U/L (73-393); Potassium 3.9 mmol/L (3.5-5.1); Sodium Level 141 mmol/L (136-145)
[2018-10-23 10:15] LABS: Urine Blood TRACE (NEG); Urine Glucose NEGATIVE (NEG); Urine Protein 1+ (NEG); Urine Specific Gravity 1.015 (1.005-1.030); Urine pH 8.5 (5.0-7.0)
[2018-10-23] MEDS ORDERED: FAMOTIDINE 20 MG/2 ML VIAL IV ONE (11:19)
[2018-10-23] MEDS ORDERED: PROMETHAZINE 25 MG/ML VIAL ONE (11:19)
[2018-10-23] MEDS ORDERED: THIAMINE 200 MG/2 ML INJ ONE (11:19)
--- NOTE | 2018-10-23 11:37 | RAD REPORT ---
EXAM DESCRIPTION: CTAbdomen Pelvis W Contrast - 10/23/2018 11:28 am CLINICAL HISTORY: Abdominal pain. ABD PAIN COMPARISON: No comparisons TECHNIQUE: Biphasic CT imaging of the abdomen and pelvis was performed with 100 ml non-ionic IV cont rast. All CT scans are performed using dose optimization technique as appropriate and may include automated exposure control or mA/KV adjustment according to patient size. FINDINGS: The lung bases are clear. The liver, spleen, pancreas, adrenal glands and kidneys are within normal limits. No bowel obstruction, free air, free fluid or abscess. The appendix is normal. No evidence of signi ficant lymphadenopathy. No suspicious bony findings. IMPRESSION: No acute intra-abdominal or pelvic finding.
--- NOTE | 2018-10-23 11:51 | EDPHYS ---
Physician Documentation [facility] Name: Angie Hillman Age: 33 yrs Sex: Female : 1985 Arrival Date: 10/23/2018 Time: 08:52 Bed 6 Private MD: None, None ED Physician Julio Varma HPI: 10/23 09:43 This 33 yrs old Female presents to ER via Ambulatory with complaints of carter Vomiting. 09:43 The patient presents to the emergency department with nausea, vomiting, diarrhea, that carter is continuous. Onset: The symptoms/episode began/occurred just prior to arrival. Possible causes: unknown. The symptoms are aggravated by nothing. The symptoms are alleviated by. Associated signs and symptoms: Pertinent positives: abdominal pain, diarrhea, vomiting. Severity of symptoms: At their worst the symptoms were mild moderate in the emergency department the symptoms are unchanged. The patient has not experienced similar symptoms in the past. Historical: - Allergies: 09:03 Doxapram; ss - Home Meds: 09:03 Ambien 10 mg Oral tab 1 tab once daily [Active]; Lexapro Oral [Active]; ss - PMHx: 09:03 Pancreatitis; ss - PSHx: 09:03 None; ss - Immunization history:: Adult Immunizations. - Social history:: Smoking status: Patient/guardian denies using tobacco. - Ebola Screening: : Patient denies exposure to infectious person Patient denies travel to an Ebola-affected area in the 21 days before illness onset. - Family history:: not pertinent. ROS: 09:43 Constitutional: Negative for fever, chills, and weight loss, Eyes: Negative for injury, carter pain, redness, and discharge, ENT: Negative for injury, pain, and discharge, Neck: Negative for injury, pain, and swelling, Cardiovascular: Negative for chest pain, palpitations, and edema, Respiratory: Negative for shortness of breath, cough, wheezing, and pleuritic chest pain, Back: Negative for injury and pain, : Negative for injury, bleeding, discharge, and swelling, MS/Extremity: Negative for injury and deformity, Skin: Negative for injury, rash, and discoloration, Neuro: Negative for headache, weakness, numbness, tingling, and seizure, Psych: Negative for depression, anxiety, suicide ideation, homicidal ideation, and hallucinations, Allergy/Immunology: Negative for hives, rash, and allergies, Endocrine: Negative for neck swelling, polydipsia, polyuria, polyphagia, and marked weight changes, Hematologic/Lymphatic: Negative for swollen nodes, abnormal bleeding, and unusual bruising. 09:43 Abdomen/GI: Positive for abdominal pain, nausea and vomiting, diarrhea. Exam: 09:43 Constitutional: This is a well developed, well nourished patient who is awake, alert, carter and in no acute distress. Head/Face: Normocephalic, atraumatic. Eyes: Pupils equal round and reactive to light, extra-ocular motions intact. Lids and lashes normal. Conjunctiva and sclera are non-icteric and not injected. Cornea within normal limits. Periorbital areas with no swelling, redness, or edema. ENT: Nares patent. No nasal discharge, no septal abnormalities noted. Tympanic membranes are normal and external auditory canals are clear. Oropharynx with no redness, swelling, or masses, exudates, or evidence of obstruction, uvula midline. Mucous membranes moist. Neck: Trachea midline, no thyromegaly or masses palpated, and no cervical lymphadenopathy. Supple, full range of motion without nuchal rigidity, or vertebral point tenderness. No Meningismus. Chest/axilla: Normal chest wall appearance and motion. Nontender with no deformity. No lesions are appreciated. Cardiovascular: Regular rate and rhythm with a normal S1 and S2. No gallops, murmurs, or rubs. Normal PMI, no JVD. No pulse deficits. Respiratory: Lungs have equal breath sounds bilaterally, clear to auscultation and percussion. No rales, rhonchi or wheezes noted. No increased work of breathing, no retractions or nasal flaring. Back: No spinal tenderness. No costovertebral tenderness. Full range of motion. Female : Normal external genitalia. Skin: Warm, dry with normal turgor. Normal color with no rashes, no lesions, and no evidence of cellulitis. MS/ Extremity: Pulses equal, no cyanosis. Neurovascular intact. Full, normal range of motion. Neuro: Awake and alert, GCS 15, oriented to person, place, time, and situation. Cranial nerves II-XII grossly intact. Motor strength 5/5 in all extremities. Sensory grossly intact. Cerebellar exam normal. Normal gait. Psych: Awake, alert, with orientation to person, place and time. Behavior, mood, and affect are within normal limits. 09:43 Abdomen/GI: Inspection: abdomen appears normal, Bowel sounds: normal, Palpation: nontender, Liver: no appreciated palpable abnormalities, Hernia: not appreciated. Vital Signs: 09:03 BP 117 / 82; Pulse 76; Resp 21; Temp 97.9(TE); Pulse Ox 100% on R/A; Weight 58.97 kg; ss Height 5 ft. 8 in. (172.72 cm); Pain 05/11; 09:03 Body Mass Index 19.77 (58.97 kg, 172.72 cm) ss MDM: 09:02 Patient medically screened. [facility] 09:49 Data reviewed: vital signs, nurses notes, lab test result(s), CBC, electrolytes, [facility] hepatic panel, urinalysis. 10/23 09:03 Order name: Basic Metabolic Panel; Complete Time: 10:19 [facility] 10/23 09:03 Order name: CBC with Diff; Complete Time: 10:19 [facility] 10/23 09:03 Order name: Creatinine for Radiology; Complete Time: 10:19 [facility] 10/23 09:03 Order name: Hepatic Function; Complete Time: 10:19 [facility] 10/23 09:03 Order name: Lipase; Complete Time: 10:19 [facility] 10/23 09:29 Order name: Urine Dipstick--Ancillary (enter results); Complete Time: 10:19 10/23 09:29 Order name: Urine --Ancillary (enter results); Complete Time: 10:19 10/23 10:20 Order name: CT Abd/Pelvis - W/Contrast; Complete Time: 11:50 [facility] 10/23 09:03 Order name: IV Saline Lock; Complete Time: 09:42 [facility] 10/23 09:03 Order name: Labs collected and sent; Complete Time: 09:42 [facility] 10/23 09:03 Order name: Urine Dipstick-Ancillary (obtain specimen); Complete Time: :42 [facility] 10/23 09:03 Order name: Urine Test (obtain specimen); Complete Time: 09:42 [facility] Administered Medications: 09:40 Drug: NS 0.9% 1000 ml Route: IV; Rate: 1 bolus; Site: right antecubital; sg 11:00 Follow up: Response: No adverse reaction; IV Status: Completed infusion; IV Intake: sv 1000ml 09:40 Drug: Zofran 4 mg Route: IVP; Site: right antecubital; sg 11:14 Drug: Phenergan 12.5 mg Route: IVP; Site: right antecubital; sv 11:16 Drug: Pepcid 20 mg Route: IVP; Site: right antecubital; sv 11:25 Drug: NS 0.9% 1000 ml Route: IV; Rate: 1 bolus; Site: right antecubital; sg 11:25 Drug: Thiamine 100 mg Route: IV; Rate: bolus; Site: right antecubital; sg Disposition: 10/23/18 11:50 Discharged to Home. Impression: Vomiting, Diarrhea, unspecified, Alcohol abuse, Acute pancreatitis. - Condition is Stable. - Discharge Instructions: Food Choices to Help Relieve Diarrhea, Adult, Diarrhea, Adult, Nausea and Vomiting, Adult, Acute Pancreatitis, Acute Pancreatitis, Yrld-ff-Ghvn, Nausea and Vomiting, Adult, Mvfa-ae-Ygpi, Alcohol Abuse and Nutrition, Diarrhea, Adult, Kqll-hl-Enwp. - Prescriptions for Bentyl 20 mg Oral Tablet - take 1 tablet by ORAL route every 6 hours As needed; 20 tablet. Pepcid 20 mg Oral Tablet - take 1 tablet by ORAL route every 12 hours for 10 days; 20 tablet. Zofran 4 mg Oral Tablet - take 1 tablet by ORAL route every 12 hours As needed; 20 tablet. - Medication Reconciliation Form, Thank You Letter, Antibiotic Education, Prescription Opioid Use, Work release form form. - Follow up: Private Physician; When: 2 - 3 days; Reason: Recheck today's complaints, Continuance of care, Re-evaluation by your physician. Follow up: Kamar Herrera; When: 2 - 3 days; Reason: Recheck today's complaints, Continuance of care, Re-evaluation by your physician. - Problem is new. - Symptoms have improved. Signatures: Dispatcher [employer] Yana English RN RN sv Gay, Steven, RN RN sg Anderson, Corey, MD MD cha Smirch, Shelby, RN RN ss Corrections: (The following items were deleted from the chart) 13:03 11:50 10/23/2018 11:50 Discharged to Home. Impression: Vomiting; Diarrhea, unspecified; sv Alcohol abuse; Acute pancreatitis. Condition is Stable. Discharge Instructions: Food Choices to Help Relieve Diarrhea, Adult, Diarrhea, Adult, Nausea and Vomiting, Adult, Acute Pancreatitis, Acute Pancreatitis, Gceh-rx-Gcnf, Nausea and Vomiting, Adult, Loqx-fy-Elui, Alcohol Abuse and Nutrition, Diarrhea, Adult, Ggxr-dm-Livk. Prescriptions for Bentyl 20 mg Oral Tablet - take 1 tablet by ORAL route every 6 hours As needed; 20 tablet, Pepcid 20 mg Oral Tablet - take 1 tablet by ORAL route every 12 hours for 10 days; 20 tablet, Zofran 4 mg Oral Tablet - take 1 tablet by ORAL route every 12 hours As needed; 20 tablet. and Forms are Medication Reconciliation Form, Thank You Letter, Antibiotic Education, Prescription Opioid Use. Follow up: Private Physician; When: 2 - 3 days; Reason: Recheck today's complaints, Continuance of care, Re-evaluation by your physician. Follow up: Kamar Herrera; When: 2 - 3 days; Reason: Recheck today's complaints, Continuance of care, Re-evaluation by your physician. Problem is new. Symptoms have improved. carter
--- NOTE | 2018-10-23 11:51 | ER ---
Nurse's Notes [facility] Name: Angie Hillman Age: 33 yrs Sex: Female : 1985 Arrival Date: 10/23/2018 Time: 08:52 Bed 6 Private MD: None, None Diagnosis: Vomiting;Diarrhea, unspecified;Alcohol abuse;Acute pancreatitis Presentation: 10/23 09:01 Presenting complaint: Patient states: N/V and abd pain that began this morning at 0400. ss Pt reports a history of pancreatits, but states this feels different. Transition of care: patient was not received from another setting of care. Onset of symptoms was October 23, 2018. Risk Assessment: Do you want to hurt yourself or someone else? Patient reports no desire to harm self or others. Initial Sepsis Screen: Does the patient meet any 2 criteria? No. Patient's initial sepsis screen is negative. Does the patient have a suspected source of infection? No. Patient's initial sepsis screen is negative. Note Pt has finger in her throat during triage attempting to vomit. Care prior to arrival: None. 09:01 Method Of Arrival: Ambulatory 09:01 Acuity: SOREN 3 ss Historical: - Allergies: 09:03 Doxapram; ss - Home Meds: 09:03 Ambien 10 mg Oral tab 1 tab once daily [Active]; Lexapro Oral [Active]; ss - PMHx: 09:03 Pancreatitis; ss - PSHx: 09:03 None; ss - Immunization history:: Adult Immunizations. - Social history:: Smoking status: Patient/guardian denies using tobacco. - Ebola Screening: : Patient denies exposure to infectious person Patient denies travel to an Ebola-affected area in the 21 days before illness onset. - Family history:: not pertinent. Screenin:02 Abuse screen: Denies threats or abuse. Denies injuries from another. Nutritional sv screening: No deficits noted. Tuberculosis screening: No symptoms or risk factors identified. Fall Risk None identified. Assessment: 09:42 General: Appears in no apparent distress. comfortable, well groomed, well developed, sg well nourished, Behavior is calm, cooperative, appropriate for age. Neuro: Level of Consciousness is awake, alert, obeys commands, Oriented to person, place, time, situation, Gis Administrator are equal bilaterally Moves all extremities. Full function Speech is normal, Facial symmetry appears normal. Cardiovascular: Capillary refill is brisk in bilateral fingers Patient's skin is warm and dry. Chest pain is denied. Respiratory: Airway is patent Respiratory effort is even, unlabored, Respiratory pattern is regular, symmetrical. GI: Abdomen is flat, Pt is actively vomiting bile, Reports nausea, vomiting. Derm: Skin is intact, is healthy with good turgor, Skin is dry, Skin is pale, Skin temperature is warm. Musculoskeletal: No signs and/or symptoms reported regarding the musculoskeletal system. 11:14 Reassessment: Patient appears in no apparent distress at this time. No changes from sv previously documented assessment. Patient and/or family updated on plan of care and expected duration. Pain level reassessed. Patient is alert, oriented x 3, equal unlabored respirations, skin warm/dry/pink. GI: Reports nausea. Vital Signs: 09:03 BP 117 / 82; Pulse 76; Resp 21; Temp 97.9(TE); Pulse Ox 100% on R/A; Weight 58.97 kg; ss Height 5 ft. 8 in. (172.72 cm); Pain 10/10; 09:03 Body Mass Index 19.77 (58.97 kg, 172.72 cm) ED Course: 08:52 Patient arrived in ED. mr 08:53 None, None is Private Physician. mr 09:02 Julio Varma MD is Attending Physician. [facility] 09:02 Triage completed. ss 09:03 Arm band placed on right wrist. ss 09:20 Sukumar Moya, RN is Primary Nurse. sg 09:30 Initial lab(s) drawn, by nj, sent to lab. Urine collected: clean catch specimen, earnestine sg colored. Inserted saline lock: 22 gauge in right antecubital area, using aseptic technique. Blood collected. 11:28 CT Abd/Pelvis - W/Contrast In Process Unspecified. EDMS 11:50 Kamar Herrera MD is Referral Physician. carter 13:02 Patient has correct armband on for positive identification. sv 13:02 No provider procedures requiring assistance completed. IV discontinued, intact, sv bleeding controlled, No redness/swelling at site. Pressure dressing applied. Administered Medications: 09:40 Drug: NS 0.9% 1000 ml Route: IV; Rate: 1 bolus; Site: right antecubital; sg 11:00 Follow up: Response: No adverse reaction; IV Status: Completed infusion; IV Intake: sv 1000ml 09:40 Drug: Zofran 4 mg Route: IVP; Site: right antecubital; sg 11:14 Drug: Phenergan 12.5 mg Route: IVP; Site: right antecubital; sv 11:16 Drug: Pepcid 20 mg Route: IVP; Site: right antecubital; sv 11:25 Drug: NS 0.9% 1000 ml Route: IV; Rate: 1 bolus; Site: right antecubital; sg 11:25 Drug: Thiamine 100 mg Route: IV; Rate: bolus; Site: right antecubital; sg Intake: 11:00 IV: 1000ml; Total: 1000ml. sv Outcome: 11:50 Discharge ordered by . carter 13:02 Discharged to home ambulatory. sv 13:02 Condition: stable 13:02 Discharge instructions given to patient, Instructed on discharge instructions, follow up and referral plans. no drinking with medication, medication usage, Demonstrated understanding of instructions, follow-up care, medications, Prescriptions given X 3. 13:03 Patient left the ED. sv Signatures: Dispatcher [employer] Yana English RN RN sv Gay, Steven, RN RN sg Anderson, Corey, MD MD cha Rivera, Mary mr Smirch, Shelby, RN RN
== END 2018-10-23 13:03 | disposition home or self-care (01) ==
LOC: ER 08:49
DX: K85.90 Acute pancreatitis without necrosis or infection, unspecified (principal); F10.10 Alcohol abuse, uncomplicated; Z88.8 Allergy status to other drugs, medicaments and biological substances
CPT/HCPCS: 36415; 74177; 80048; 80076; 81003; 81025; 83690; 85025; 96361; 96374; 96375; 99284; J2405; J2550; J3411; J7030; Q9967

== ENCOUNTER 2018-11-25 06:45 | Emergency (ER) | payer SELFPAY ==
--- OUTSIDE RECORDS SUMMARY | 2018-11-25 06:48 | XMS REPORT ---
:1985 [facility] [address] [place] [address] [address] [place] [address] Care Team Providers Name Role Phone Unavailable [...] NEEDED? (test code=UACULT) Criteria not met UA [id number] 19:09:00 Test Item Value Reference Range Comments UA RBC (test code=RBCU) 0-2 #/hpf NONE SEEN UA BACTERIA (test code=BACU) RARE #/hpf NONE SEEN UA RFLX MICROSCOPIC [id number] 19:03:00 Test Item Value Reference Range Comments [...] <100 UA CULTURE NEEDED? (test code=UACULT) UA [id number] 19:03:00 Test Item Value Reference Range Comments UA RBC (test code=RBCU) #/hpf NONE SEEN UA RFLX MICROSCOPIC [id number] 19:03:00 Test Item Value Reference Range Comments [...] <100 UA CULTURE NEEDED? (test code=UACULT) UA [id number] 19:03:00 Test Item Value Reference Range Comments UA RBC (test code=RBCU) #/hpf NONE SEEN D-DIMER [id number] 18:56:00 Test Item Value Reference Range Comments [...] D-Dimer result. ADD ON- XR CHEST 1 [id number] 18:34:00 Patient Name: ADY AYON Unit No: [id number] EXAMS: CPT CODE: [id number] XR CHEST 1 V 27321 Reason : syncope History: 4 syncopal episodes [...] t.[email or web address].ELG Orig Print D/T: S: 09/28/2018 (1837) [facility] NAME: ADY AYON [id number] [facility] PHYS: [email or web address] - CarenMichael maradiaga II Amarilis [place], [id number] : 1985 AGE: 33 SEX: F LOC: D.NER PHONE #: [phone] EXAM DATE: 09/28/2018 STATUS: REG ER FAX #: RAD NO: DC Dt: PAGE 1 Signed Report- CT HEAD/BRAIN W/O [id number] 18:11:00 Patient Name: ADY AYON Unit No: [id number] EXAMS: CPT CODE: [id number] CT HEAD/BRAIN W/O CONT [id number] Reason: sncope, SHER History: Syncope and headache. [...] D/ T: S: 09/28/2018 (181) CTDI: DLP: [facility] NAME: ADY AYON [id number] PHYS: [email or web address].[email or web address] - Caren,[place] [address] : 12/1984 AGE: 33 SEX: F LOC: DayanMEHREEN PHONE #: [phone] EXAM DATE: STATUS: REG ER FAX #: RAD NO: DC Dt: PAGE 1 Signed ReportHCG SERUM [id number] 17:44:00 Test Item Value Reference Range Comments HCG SERUM QUAL (test NEGATIVE NEGATIVE False negatives may occur when code=HCGQL) levels of hCGare below 10 mIU/ml. When is still suspected, a new specimenshould be obtained after 48 hours and re-tested.If waiting 48 hours is not medically advisable,the test result should be confirmed using aquantitative hCG assay. 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 BASIC METABOLIC [id number] 17:25:00 Test Item Value Reference Range Comments [...] code=CA) 9.0 MG/DL 8.7-10.5 NT PRO-BRAIN NATRIURETIC [id number] 17:25:00 Test Item Value Reference Range Comments NT PRO-BRAIN NATRIURETIC PEPTI 112 PG/ML 0-125 Results of this assay method (test code=PROBNP) may be falsely depressed orelevated if patient is taking high doses of Biotin. BASIC METABOLIC [id number] 17:16:00 Test Item Value Reference Range Comments [...] code=CA) 9.0 MG/DL 8.7-10.5 NT PRO-BRAIN NATRIURETIC [id number] 17:16:00 Test Item Value Reference Range Comments NT PRO-BRAIN NATRIURETIC PEPTI (test code=PROBNP) PG/ML 0-125 CBC W/AUTO [id number] 17:10:00 Test Item Value Reference Range Comments [...]
[2018-11-25 07:16] LABS: Absolute Monocytes 0.5 K/uL (0.1-1.3); Absolute Neutrophil 3.6 K/uL (1.8-8.0); Basophils % 0.7 % (0-1.3); Eosinophils % 0.4 % (0-4.4); Hematocrit 40.5 % (36.0-45.0); MPV 9.8 fL (7.6-11.3); Monocytes % 7.7 % (3.3-12.3)
[2018-11-25] MEDS ORDERED: KETOROLAC 30 MG/ML INJ ONE (07:21)
[2018-11-25] MEDS ORDERED: PROMETHAZINE 25 MG/ML VIAL ONE (07:21)
[2018-11-25] MEDS ORDERED: NA CHLORIDE 0.9% 1,000 ML ONE (07:21)
[2018-11-25 07:34] LABS: Albumin 3.9 g/dL (3.4-5.0); Bilirubin Direct 0.1 mg/dL (0-0.2); Bilirubin Total 0.5 mg/dL (0.2-1.0); Potassium 3.3 mmol/L (3.5-5.1); Protein, Total 7.6 g/dL (6.4-8.2)
[2018-11-25 07:40] LABS: Urine Blood TRACE (NEG); Urine Glucose NEGATIVE (NEG); Urine Protein 1+ (NEG); Urine Specific Gravity 1.025 (1.005-1.030)
[2018-11-25] MEDS ORDERED: ONDANSETRON 4 MG/2 ML VIAL ONE (07:59)
[2018-11-25] MEDS ORDERED: POTASSIUM CL SA 10 MEQ TAB PO ONE (07:59)
--- NOTE | 2018-11-25 08:25 | EDPHYS ---
Physician Documentation [facility] Name: Angie Hillman Age: 33 yrs Sex: Female : 1985 Arrival Date: 11/25/2018 Time: 06:47 Bed 6 Private MD: ED Physician Julio Varma HPI: 11/25 07:48 This 33 yrs old Female presents to ER via Ambulatory with complaints of ma2 Nausea/Vomiting/Diarrhea, Abdominal Pain. 07:48 The patient presents to the emergency department with. ma2 07:55 Onset: The symptoms/episode began/occurred yesterday. Possible causes: unknown. The kb symptoms are aggravated by nothing. The symptoms are alleviated by nothing. Associated signs and symptoms: Pertinent positives: diarrhea, nausea, vomiting, abd cramping. Severity of symptoms: At their worst the symptoms were moderate in the emergency department the symptoms are unchanged. The patient has experienced similar episodes in the past. The patient has not recently seen a physician. Pt reports n/v/d and abd cramping that started last night. STates she has pancreatitis, but does not think that is what it is. Reports she was very stressed yesterday so she thinks that is what brought the symptoms on. . Historical: - Allergies: 06:59 Doxapram; jd3 - Home Meds: 06:59 Lexapro Oral [Active]; Zofran Oral [Active]; Ambien 10 mg Oral tab 1 tab once daily jd3 [Active]; - PMHx: 06:59 Pancreatitis; Anxiety; jd3 - PSHx: 06:59 None; jd3 - Immunization history:: Adult Immunizations up to date. - Social history:: Smoking status: Patient/guardian denies using tobacco, but has a distant history of tobacco abuse. - Ebola Screening: : Patient negative for fever greater than or equal to 101.5 degrees Fahrenheit, and additional compatible Ebola Virus Disease symptoms. ROS: 07:52 Constitutional: Negative for fever, chills, and weight loss, ENT: Negative for injury, kb pain, and discharge, Neck: Negative for injury, pain, and swelling, Cardiovascular: Negative for chest pain, palpitations, and edema, Respiratory: Negative for shortness of breath, cough, wheezing, and pleuritic chest pain, Back: Negative for injury and pain, : Negative for injury, bleeding, discharge, and swelling, MS/Extremity: Negative for injury and deformity, Skin: Negative for injury, rash, and discoloration, Neuro: Negative for headache, weakness, numbness, tingling, and seizure. 07:52 Abdomen/GI: Positive for nausea, vomiting, and diarrhea, abdominal cramps. Exam: 07:52 Constitutional: This is a well developed, well nourished patient who is awake, alert, kb and in no acute distress. Head/Face: Normocephalic, atraumatic. Chest/axilla: Normal chest wall appearance and motion. Nontender with no deformity. No lesions are appreciated. Cardiovascular: Regular rate and rhythm with a normal S1 and S2. No gallops, murmurs, or rubs. Normal PMI, no JVD. No pulse deficits. Respiratory: Lungs have equal breath sounds bilaterally, clear to auscultation and percussion. No rales, rhonchi or wheezes noted. No increased work of breathing, no retractions or nasal flaring. Abdomen/GI: Soft, non-tender, with normal bowel sounds. No distension or tympany. No guarding or rebound. No evidence of tenderness throughout. Back: No spinal tenderness. No costovertebral tenderness. Full range of motion. Skin: Warm, dry with normal turgor. Normal color with no rashes, no lesions, and no evidence of cellulitis. MS/ Extremity: Pulses equal, no cyanosis. Neurovascular intact. Full, normal range of motion. Neuro: Awake and alert, GCS 15, oriented to person, place, time, and situation. Cranial nerves II-XII grossly intact. Motor strength 5/5 in all extremities. Sensory grossly intact. Cerebellar exam normal. Normal gait. Vital Signs: 06:59 BP 128 / 68; Pulse 80; Resp 19 S; Temp 97.7(O); Pulse Ox 100% on R/A; Weight 58.97 kg jd3 (R); Height 5 ft. 8 in. (172.72 cm) (R); Pain 10/10; 07:37 Pain 5/10; ss 07:38 BP 107 / 62; Pulse 69; Resp 15; Pulse Ox 100% on R/A; Pain 5/10; ss 06:59 Body Mass Index 19.77 (58.97 kg, 172.72 cm) jd3 MDM: 06:50 Patient medically screened. kb 07:51 Data reviewed: vital signs, nurses notes. Data interpreted: Pulse oximetry: on room air kb is 100 %. Interpretation: normal. Counseling: I had a detailed discussion with the patient and/or guardian regarding: the historical points, exam findings, and any diagnostic results supporting the discharge/admit diagnosis, lab results, the need for outpatient follow up, a family practitioner, a museum exhibit technician, to return to the emergency department if symptoms worsen or persist or if there are any questions or concerns that arise at home. 07:53 ED course: You score 0 and no tenderness upon palpation. Pt feeling better. Will kb discharge home to follow up with PCP/GI. PT to return if symptoms worsen, unable to tolerate PO. Pt is from out of town, to follow up with GI about chronic pancreatitis. . 11/25 06:56 Order name: Basic Metabolic Panel; Complete Time: 07:38 kb 11/25 06:56 Order name: CBC with Diff; Complete Time: 07:38 kb 11/25 06:56 Order name: Hepatic Function; Complete Time: 07:38 kb 11/25 06:56 Order name: Lipase; Complete Time: 07:38 kb 11/25 07:24 Order name: Urine Dipstick--Ancillary (enter results) 11/25 07:24 Order name: Urine --Ancillary (enter results) 11/25 06:56 Order name: IV Saline Lock; Complete Time: 07:17 kb 11/25 07:25 Order name: Urine Dipstick-Ancillary; Complete Time: 07:42 EDMS 11/25 07:25 Order name: Urine --Ancillary; Complete Time: 07:42 EDMS 11/25 06:56 Order name: Labs collected and sent; Complete Time: 07:18 kb 11/25 06:56 Order name: Urine Dipstick-Ancillary (obtain specimen); Complete Time: 07:07 kb Administered Medications: 07:10 Drug: NS 0.9% 1000 ml Route: IV; Rate: 1000 ml; Site: right antecubital; ss 08:00 Follow up: IV Status: Completed infusion; IV Intake: 1000ml ss 07:12 Drug: Phenergan 12.5 mg Route: IVP; Site: right antecubital; ss 07:37 Follow up: Response: No adverse reaction; Marked relief of symptoms; Nausea is decreasedss 07:15 Drug: TORadol 30 mg Route: IVP; Site: right antecubital; ss 07:37 Follow up: Pain 5/10 Adult; Response: No adverse reaction; Marked relief of symptoms; ss Pain is decreased 07:52 Drug: Zofran 4 mg Route: IVP; Site: right antecubital; ss 08:16 Follow up: Response: No adverse reaction; Nausea is decreased ss 08:16 Drug: Potassium Chloride 20 mEq Route: PO; ss 08:36 Follow up: Response: No adverse reaction; Medication administered at discharge. ss Disposition: 11/25/18 08:24 Discharged to Home. Impression: Acute pancreatitis, unspecified, Diarrhea, unspecified. - Condition is Stable. - Discharge Instructions: Viral Gastroenteritis, Adult, [id number], Chronic Pancreatitis. - Prescriptions for Bentyl 20 mg Oral Tablet - take 1 tablet by ORAL route every 6 hours As needed; 20 tablet. promethazine 25 mg Oral Tablet - take 1 tablet by ORAL route every 8 hours As needed; 20 tablet. - Medication Reconciliation Form, Thank You Letter, Antibiotic Education, Prescription Opioid Use form. - Follow up: Emergency Department; When: As needed; Reason: Worsening of condition. Follow up: Private Physician; When: 2 - 3 days; Reason: Recheck today's complaints, Continuance of care, Re-evaluation by your physician. Addendum: 11/29/2018 10:50 Co-signature as Attending Physician, Julio Varma MD I agree with the assessment and c alicia plan of care. Signatures: Dispatcher [employer] Sonya Hull, CUSTOMER TECHNICAL SERVICES MANAGER-C CUSTOMER TECHNICAL SERVICES MANAGER-Julio Knight MD MD cha Smirch, Shelby, RN RN Jermaine Martinez RN RN jd3 Kain Nolan MD MD ma2 Corrections: (The following items were deleted from the chart) 11/25 08:38 08:24 11/25/2018 08:24 Discharged to Home. Impression: Acute pancreatitis, unspecified; ss Diarrhea, unspecified. Condition is Stable. Discharge Instructions: Viral Gastroenteritis, Adult, [id number], Chronic Pancreatitis. Prescriptions for Bentyl 20 mg Oral Tablet - take 1 tablet by ORAL route every 6 hours As needed; 20 tablet, promethazine 25 mg Oral Tablet - take 1 tablet by ORAL route every 8 hours As needed; 20 tablet. and Forms are Medication Reconciliation Form, Thank You Letter, Antibiotic Education, Prescription Opioid Use. Follow up: Emergency Department; When: As needed; Reason: Worsening of condition. Follow up: Private Physician; When: 2 - 3 days; Reason: Recheck today's complaints, Continuance of care, Re-evaluation by your physician. kb
--- NOTE | 2018-11-25 08:25 | ER ---
Nurse's Notes [facility] Name: Angie Hillman Age: 33 yrs Sex: Female : 1985 Arrival Date: 11/25/2018 Time: 06:47 Bed 6 Private MD: Diagnosis: Acute pancreatitis, unspecified;Diarrhea, unspecified Presentation: 11/25 06:56 Presenting complaint: Patient states: "I am having a lot of flu-like symptoms with jd3 nausea and vomiting and diarrhea and stomach camping.". Transition of care: patient was not received from another setting of care. Onset of symptoms was November 24, 2018. Risk Assessment: Do you want to hurt yourself or someone else? Patient reports no desire to harm self or others. Initial Sepsis Screen: Does the patient meet any 2 criteria? No. Patient's initial sepsis screen is negative. Does the patient have a suspected source of infection? No. Patient's initial sepsis screen is negative. Care prior to arrival: None. 06:56 Method Of Arrival: Ambulatory jd3 06:56 Acuity: SOREN 3 jd3 Historical: - Allergies: 06:59 Doxapram; jd3 - Home Meds: 06:59 Lexapro Oral [Active]; Zofran Oral [Active]; Ambien 10 mg Oral tab 1 tab once daily jd3 [Active]; - PMHx: 06:59 Pancreatitis; Anxiety; jd3 - PSHx: 06:59 None; jd3 - Immunization history:: Adult Immunizations up to date. - Social history:: Smoking status: Patient/guardian denies using tobacco, but has a distant history of tobacco abuse. - Ebola Screening: : Patient negative for fever greater than or equal to 101.5 degrees Fahrenheit, and additional compatible Ebola Virus Disease symptoms. Screenin:00 Abuse screen: Denies threats or abuse. Nutritional screening: No deficits noted. jd3 Tuberculosis screening: No symptoms or risk factors identified. Fall Risk Ambulatory Aid- None/Bed Rest/Nurse Assist (0 pts). Gait- Normal/Bed Rest/Wheelchair (0 pts) Mental Status- Oriented to own ability (0 pts). Total Gilliland Fall Scale indicates No Risk (0-24 pts). Assessment: 07:05 General: Appears uncomfortable, Behavior is cooperative, quiet, tearful. Reports ss feeling ill for 12-24 hours, Denies fever. Pain: Complains of pain in epigastric area Pain currently is 10 out of 10 on a pain scale. Quality of pain is described as burning, Is continuous. Neuro: Level of Consciousness is awake, alert, obeys commands, Oriented to person, place, time, situation. Cardiovascular: Heart tones S1 S2 present Capillary refill < 3 seconds is brisk in bilateral fingers Patient's skin is warm and dry. Respiratory: Airway is patent Respiratory effort is even, unlabored, Respiratory pattern is regular, symmetrical. GI: Abdomen is flat, non-distended, Bowel sounds present X 4 quads. Abd is soft X 4 quads Abdomen is tender to palpation in epigastric area Reports upper abdominal pain, epigastric pain, nausea, vomiting, since yesterday evening. : No signs and/or symptoms were reported regarding the genitourinary system. Denies burning with urination, urinary frequency. EENT: Nares are clear Oral mucosa is moist. Throat is clear. Derm: Skin is intact, is healthy with good turgor, Skin is pink, warm \\T\\ dry. normal. Musculoskeletal: Circulation, motion, and sensation intact. Capillary refill < 3 seconds, is brisk, in bilateral fingers. Range of motion:. 07:30 Reassessment: Pt reports feeling better. Pain has decreased from 10 to now 5/10. Also ss reports that nausea has decreased, but still feels minimally nauseated. Call light remains within reach. 07:50 Reassessment: Despite feeling better, patient is requesting additional nausea ss medication because she wants to "to be gone". Sonya Hull NP notified and ordered additional medication. Obey ordered and administered. AMENA Hassan at bedside updating patient on plan of care. 07:52 Reassessment: Pt is actively vomiting. ss 08:17 Reassessment: Patient appears in no apparent distress at this time. Patient and/or ss family updated on plan of care and expected duration. Pain level reassessed. Patient is alert, oriented x 3, equal unlabored respirations, skin warm/dry/pink. Patient states feeling better. Patient states symptoms have improved. Vital Signs: 06:59 BP 128 / 68; Pulse 80; Resp 19 S; Temp 97.7(O); Pulse Ox 100% on R/A; Weight 58.97 kg jd3 (R); Height 5 ft. 8 in. (172.72 cm) (R); Pain 10/10; 07:37 Pain 5/10; ss 07:38 BP 107 / 62; Pulse 69; Resp 15; Pulse Ox 100% on R/A; Pain 5/10; ss 06:59 Body Mass Index 19.77 (58.97 kg, 172.72 cm) jd3 ED Course: 06:47 Patient arrived in ED. do 06:49 Sonya Hull FNP-C is PHCP. kb 06:49 Julio Varma MD is Attending Physician. kb 06:58 Triage completed. jd3 07:00 Arm band placed on. jd3 07:00 Patient has correct armband on for positive identification. Bed in low position. Call jd3 light in reach. Side rails up X 1. 07:00 Inserted saline lock: 20 gauge in right antecubital area, using aseptic technique. cc3 Blood collected. 07:07 Jodee Baum, RN is Primary Nurse. ss 08:31 No provider procedures requiring assistance completed. IV discontinued, intact, ss bleeding controlled, No redness/swelling at site. Pressure dressing applied. Administered Medications: 07:10 Drug: NS 0.9% 1000 ml Route: IV; Rate: 1000 ml; Site: right antecubital; ss 08:00 Follow up: IV Status: Completed infusion; IV Intake: 1000ml ss 07:12 Drug: Phenergan 12.5 mg Route: IVP; Site: right antecubital; ss 07:37 Follow up: Response: No adverse reaction; Marked relief of symptoms; Nausea is decreasedss 07:15 Drug: TORadol 30 mg Route: IVP; Site: right antecubital; ss 07:37 Follow up: Pain 5/10 Adult; Response: No adverse reaction; Marked relief of symptoms; ss Pain is decreased 07:52 Drug: Zofran 4 mg Route: IVP; Site: right antecubital; ss 08:16 Follow up: Response: No adverse reaction; Nausea is decreased ss 08:16 Drug: Potassium Chloride 20 mEq Route: PO; ss 08:36 Follow up: Response: No adverse reaction; Medication administered at discharge. ss Intake: 08:00 IV: 1000ml; Total: 1000ml. ss Outcome: 08:24 Discharge ordered by . kb 08:31 Discharged to home ambulatory. 08:31 Condition: good 08:31 Discharge instructions given to patient, Instructed on discharge instructions, follow up and referral plans. medication usage, Demonstrated understanding of instructions, follow-up care, medications, Prescriptions given X 2. 08:38 Patient left the ED. Signatures: Sonya Hull, MANUFACTURING ENGINEERING TECHNICIAN-C MANUFACTURING ENGINEERING TECHNICIAN-Jodee Puga RN RN Virgie Damian Jonathon, RN RN jd3 Josie Marquez cc3
== END 2018-11-25 08:38 | disposition home or self-care (01) ==
LOC: ER 06:45
DX: K85.90 Acute pancreatitis without necrosis or infection, unspecified (principal); R19.7 Diarrhea, unspecified; F41.9 Anxiety disorder, unspecified; Z88.8 Allergy status to other drugs, medicaments and biological substances
CPT/HCPCS: 36415; 80048; 80076; 81003; 81025; 83690; 85025; 96361; 96374; 96375; 99284; J2405; J2550; J7030